=== PATIENT | female | born 1965 | race Caucasian/White ===

== ENCOUNTER 2020-09-25 02:42 | Emergency (ER) | payer SELFPAY ==
[2020-09-25 03:00] VITALS: BP 120/80; PULSE 91; RESP 20; TEMP 37; O2SAT 94; BMI 24.9
--- NOTE | 2020-09-25 03:18 | ED_ITS ---
HPI - General Adult General: Chief complaint: Nausea/Vomiting/Diarrhea Stated complaint: Covid + Coughing so hard Cant catch breathe Time Seen by Provider: 09/25/20 03:14 History of Present Illness: HPI narrative: This patient is a 55-year-old female who presents to the emergency department with complaint of nausea and fatigue. Patient denies vomiting or diarrhea. Patient's vital signs are stable. Patient was recently diagnosed with Covid. Patient states she has a pretty significant cough but denies shortness of breath and denies fever. Patient states she just has no energy. Patient does not appear to be acutely sick. Blood pressure is 120/80 pulse of 91 temperature 98.6 O2 sat is anywhere from 94-96 on room air. Onset (ago): day(s) Associated symptoms: Reports nausea; Deny chest pain, dyspnea, headache(s), rash, palpitations or vomiting Review of Systems General: Reports: 10 or more systems reviewed and unremarkable except in HPI and below Const: Reports: fatigue; Denies: fever(s), chills or body aches Eyes: Denies: change in vision or blurry vision ENMT: Denies: throat pain, hoarseness or mouth pain Card: Denies: chest pain, palpitations, irregular heart rhythm, edema, swelling of feet/ankles or lightheadedness Resp: Denies: dyspnea, productive cough, non-productive cough, wheezing or pain on inspiration GI: Reports: nausea; Denies: abdominal pain or vomiting : Denies: flank pain, difficulty voiding, dysuria, urinary frequency, urinary urgency or urinary hesitancy Musc: Denies: neck pain, back pain, extremity pain, extremity swelling, joint pain, joint swelling, joint redness, joint warmth or limited range of motion Skin/Breast: Denies: rash, pruritus, erythema or skin tenderness Neuro: Denies: headache(s), numbness in extremities or weakness in extremities Psych: Denies: anxiety or depression Physical Exam Const: COMMON NORMALS: no acute distress, average body habitus, patient oriented x3, no limitations, healthy appearing, alert and well nourished HENMT: COMMON NORMALS: normocephalic, atraumatic, hearing grossly normal bilaterally, external ears normal, EAC's normal, TM's normal bilaterally, Normal external nose present, Normal nasal mucous membranes and turbinates present, moist oral mucous membranes, oropharynx normal, dentition normal and gingiva normal HEAD & SCALP: normocephalic and atraumatic NOSE: Normal external nose present and Normal nasal mucous membranes and turbinates present EXTERNAL EAR: Yes external ears normal EXTERNAL AUDITORY CANAL: EAC's normal TYMPANIC MEMBRANE: TM's normal bilaterally Neck/C-Spine: COMMON NORMALS: full ROM, no lymphadenopathy, supple, no meningeal signs, no JVD, Thyroid normal and No carotid bruits THYROID: Thyroid normal Chest: COMMONS NORMALS: normal inspection of the chest, normal palpation of entire chest wall, normal inspection of the breasts and normal palpation of the breasts Breast/axilla inspection: Yes normal inspection of the breasts BREAST/AXILLA PALPATION: Yes normal palpation of the breasts Resp: COMMON NORMALS: normal respiratory effort, No retractions, No use of accessory muscles, clear to auscultation bilaterally and percussion normal AUSCULTATION: clear to auscultation bilaterally PERCUSSION: percussion normal Cardio: COMMON NORMALS: no JVD, regular rate, regular rhythm, S1 normal heart sound present, S2 normal heart sound present, No gallops present (Cardio), No clicks present (Cardio), No murmurs present (Cardio), No rub (Cardio) and Peripheral pulses 2+ throughout RATE: regular rate RHYTHM: regular rhythm HEART SOUNDS: S1 normal heart sound present and S2 normal heart sound present PERIPHERAL PULSES: Peripheral pulses 2+ throughout GI: COMMON NORMALS: Normal to inspection, nondistended, normoactive bowel sounds present, Soft to palpation, non-tender, No hepatosplenomegaly present, no masses and no bruits PALPATION: Yes Soft to palpation and Yes No hepatosplenomegaly present Back/Pelvis: COMMON NORMALS: thoracic and lumbar spine normal to inspection, no thoracic nor lumbar tenderness, thoraco-lumbar ROM normal and straight leg raise negative bilaterally Extremity: COMMON NORMALS: normal to inspection, full ROM, capillary refill normal, no joint enlargement, no clubbing, cyanosis or edema, no calf tenderness and no pedal edema Neuro: COMMON NORMALS: patient oriented x3 SENSORIUM/ORIENTATION: Yes alert MENINGEAL SIGNS: Yes no meningeal signs Course Reevaluation(s): Reevaluation #1: I did discuss at length with patient about options. We will give patient a dose of Zofran for nausea and given IM injection of Decadron. Patient will be discharged home patient states understanding. Patient is to continue self quarantine and Covid precautions. Follow-up with primary care physician in 7 to 10 days. Vital Signs: Vital signs: Vital Signs Temperature 98.6 F 09/25/20 03:00 Pulse Rate 91 09/25/20 03:00 Respiratory Rate 20 H 09/25/20 03:00 Blood Pressure 120/80 09/25/20 03:00 Pulse Oximetry 94 09/25/20 03:00 MDM - General Adult MDM Narrative: Medical decision making narrative: I did discuss at length with patient about options. We will give patient a dose of Zofran for nausea and given IM injection of Decadron. Patient will be discharged home patient states understanding. Patient is to continue self quarantine and Covid precautions. Follow-up with primary care physician in 7 to 10 days. Discharge Plan Discharge Patient Disposition: Home Clinical Impression: COVID-19, Viral illness Condition: Stable Prescriptions: New benzonatate [Tessalon Perles] 100 mg capsule 100 mg PO BID PRN (Reason: cough) Qty: 20 RF: 0 ondansetron 4 mg tablet,disintegrating 4 mg PO DAILY PRN (Reason: nausea and vomiting) 4 Days Qty: 10 RF: 0 Discharge Orders: Discharge ED (Routine); Ordered 09/25/20 Ordered By: Joshua Marquis Discharge Diet: Advance as tolerated Discharge Activity: Resume usual activity Patient Instructions: Opioid Safety Activity Restrictions/Additional Instructions: Patient is a cool-mist humidifier at home. Encourage p.o. fluids. Tylenol Motrin as needed for fever pain. Get plenty of rest and advance diet slowly. Take medications as prescribed. Continue with self quarantine and Covid precautions. Coding Level of Care Code ED [employer] for Ailyn Killian
[2020-09-25] MEDS: dexamethasone 10 mg/mL INJ IM (03:32)
[2020-09-25] MEDS: ondansetron 4 MG Tablet PO (03:33)
== END 2020-09-25 03:30 | disposition home or self-care (01) ==
PROVIDERS: Emergency Provider Emergency Medicine
DX: U07.1 COVID-19 (principal); B34.9 Viral infection, unspecified
CPT/HCPCS: 96372; 99283; J1100; Q0162